=== PATIENT | female | born 1985 | race Caucasian/White ===

== ENCOUNTER → 2018-03-09 08:15 | Outpatient (CLI) | payer OTHER, SELFPAY ==
--- NOTE | 2018-03-09 08:16 | DI.US.S_ITS ---
PROCEDURE: US OB >= 14 WEEKS FETUS INDICATIONS: 20 week aantomic survey OUTSIDE/PRIOR DATING DATA: Last menstrual period (LMP): 10/23/2017. LMP-based estimated date of delivery (MARIBEL): 07/30/2018. First dating scan (date and location): 01/01/2018. Estimated date of delivery (MARIBEL) from first dating scan: 07/27/2018. TECHNIQUE: Real-time scanning was performed of the fetus, with image documentation and biometric measurements. Endovaginal scanning: Not required COMPARISON: [facility], , OB COMPLETE LESS THAN 14 WKS, 01/20/2018, 8:40. FINDINGS: General: A single living intrauterine gestation is present. Presentation: Transverse to breech. Placenta: Placental position is a right frontal, without previa. Amniotic fluid index: 13.7 cm, normal range is 5-24 cm. heart rate: 145 beats per minute. Maternal cervical canal: 5.8 cm long. Normal lower limit is 2.5 cm. biometrics: Biparietal diameter: 21 weeks 3 days Head circumference: 20 weeks 3 days Abdominal circumference: 20 weeks 6 days Femur length: 19 weeks 4 days Estimated gestational age from initial scan: 20.0 weeks Composite gestational age from present scan: 20 weeks 4 days, normal growth Estimated weight and percentile: 347 g at the 65th percentile Measurement variability for biometric dating: +/- 7 days from 14 weeks to 15 weeks 6 days gestation, +/- 10 days from 16 weeks to 21 weeks 6 days gestation, +/- 2 weeks from 22 weeks to 27 weeks 6 days gestation, +/- 3 weeks for 28 weeks gestation or later. weight reference: 4500 g or EFW >90/95% is considered macrosomia or large for gestational age. EFW <10% is small for gestational age. EFW 5% or less is considered intra-uterine growth restriction. Anatomic survey: Neuro: Ventricles are non-dilated at less than 10 mm. Cisterna magna is normal at 3-11 mm. Cerebellum is normal in size and morphology. Nuchal skin fold: Normal at less than 6 mm between 14-21 weeks gestational age. Face: Nose and lips, facial profile are normal. Spine: No evidence for spina bifida. Heart: 4-chambered heart is present, with normal ventricular outflow tracts. Diaphragm: Diaphragm is intact. Stomach: Left-sided stomach is present. Kidneys: No hydronephrosis. Normal is less than 5 mm in 2nd trimester, less than 7 mm in 3rd trimester. Cord: 3-vessel cord has orthotopic insertion. Bladder: Normal in size. Extremities: All 4 extremities identified. IMPRESSION: Single, live intrauterine gestation in breech position showing composite gestational age of 20 weeks 4 days, normal growth and normal anatomy. Dictated by: Abdoulaye Cheema M.D. on 03/09/2018 at 9:33 Approved by: Abdoulaye Cheema M.D. on 03/09/2018 at 9:37
== END ==
PROVIDERS: PCP Internal Medicine; Visit Provider Specialist
DX: Z34.92 Encounter for supervision of normal pregnancy, unspecified, second trimester (principal); Z3A.20 20 weeks gestation of pregnancy
CPT/HCPCS: 76811

== ENCOUNTER → 2018-03-23 10:42 | Outpatient (CLI) | payer OTHER, SELFPAY ==
[2018-03-23 11:23] LABS: Add Manual Diff / Slide Review NO; Basophils Percent Auto 0.3 % (0-2); Eosinophils Percent Auto 1.2 % (2-4); Hematocrit 34.4 % (36-46); Lymphocytes Percent Auto 21.5 % (25-40); Mean Corpuscular HGB Conc 34.9 % (30-36); Mean Corpuscular Hemoglobin 30.2 PG (26-34); Mean Corpuscular Volume 86.7 fL (80-100); Monocytes Percent Auto 6.4 % (3-14); Neutrophils Absolute Auto 5300 /uL (3000-5900); Neutrophils Percent Auto 70.6 % (50-75); Platelet Count 228 X10^3/uL (150-400); Red Blood Cell Count 3.97 X10^6/uL (4.0-5.2); Red Cell Distribution Width 14.2 % (11.6-14.8); White Blood Cell Count 7.6 X10^3/uL (4.5-11.0)
[2018-03-23 15:28] LABS: Hepatitis B Surface Antigen NEGATIVE s/c (NEGATIVE); Rubella Antibody IgG 6.3 IU/mL (>15)
[2018-03-23 15:45] LABS: HIV 1 and 2 Antibody NEGATIVE (NEGATIVE); Hep C Virus Ab w/Reflex Quant NEGATIVE s/c (NEGATIVE)
[2018-03-24 15:21] LABS: HSV 2 IGG AB < 0.90 index (< 0.90)
[2018-03-28 15:19] LABS: Rapid Plasma Reagin NON-REACTIVE
== END ==
PROVIDERS: PCP Internal Medicine; Visit Provider Specialist
DX: Z34.92 Encounter for supervision of normal pregnancy, unspecified, second trimester (principal); Z34.82 Encounter for supervision of other normal pregnancy, second trimester
CPT/HCPCS: 36415; 80055; 86695; 86696; 86703; 86787; 86803; 86850; 86900; 86901; 87086

== ENCOUNTER 2018-05-11 15:02 | Outpatient (CLI) | payer OTHER, SELFPAY ==
--- NOTE | 2018-05-11 15:25 | PM.OBTRLD ---
Visit Information Visit Information Date of evaluation: 05/11/18 Primary OB Provider: Rossy Mccall Reason for Evaluation: Yes other Comments/Additional reasons for admission: Unexplained dizziness Vital Signs Vital Signs: Patient is afebrile, pulse 64, blood pressure 106/62 PFSH Medical History Acne (Chronic) Heavy menstrual bleeding (Chronic) Recurrent cold sores (Chronic) Raynaud disease (Suspected) Family History Grandfather Age: 84 Cancer Diabetes mellitus Heart disease Hypertension Grandmother Age: 80 Hypertension High cholesterol Mother Age: 55 PCOS (polycystic ovarian syndrome) Evaluation Evaluation Baseline heart rate: 130 Variability: Average (6-10) monitor accelerations: Present monitor decelerations: Absent Diagnosis, Plan/Disposition Final Diagnosis (1) Dizziness of unknown cause: Current Visit: Yes Status: Acute (2) 30 weeks gestation of : Current Visit: Yes Status: Acute (3) Encounter for supervision of other normal , third trimester: Current Visit: Yes Status: Acute Plan/Disposition Plan: Patient is dizzy with normal vital signs unclear etiology. Patient is to push fluids rest and keep her follow-up appointment in 2 days.
== END 2018-05-11 15:31 | disposition home or self-care (01) ==
LOC: LABOR 15:37 → OB 05-13 16:43
PROVIDERS: PCP Internal Medicine; Visit Provider Specialist
DX: Z34.83 Encounter for supervision of other normal pregnancy, third trimester (principal); Z3A.29 29 weeks gestation of pregnancy
CPT/HCPCS: 59025; G0378; G0379

== ENCOUNTER → 2018-05-13 10:01 | Outpatient (CLI) | payer OTHER, SELFPAY ==
[2018-05-13 13:19] LABS: Hematocrit 33.8 % (36-46); Hemoglobin 11.6 g/dL (12.0-16.0)
[2018-05-13 14:15] LABS: GTT (PREG) 1 Hour PP 50gm Dose 68 mg/dL (76-139)
== END ==
PROVIDERS: PCP Internal Medicine; Visit Provider Specialist
DX: Z34.82 Encounter for supervision of other normal pregnancy, second trimester (principal)
CPT/HCPCS: 82950; 85014; 85018

== ENCOUNTER → 2018-05-24 08:15 | Outpatient (CLI) | payer OTHER, SELFPAY ==
--- NOTE | 2018-05-24 | DI.US.S_ITS ---
PROCEDURE: US OB LIMITED INDICATIONS: 31 weeks with vaginal bleeding OUTSIDE/PRIOR DATING DATA: Last menstrual period (LMP): 10/23/2017. LMP-based estimated date of delivery (MARIBEL): 07/30/2018. First dating scan (date and location): 01/01/2018. Estimated date of delivery (MARIBEL) from first dating scan: 07/27/2018. TECHNIQUE: Real-time scanning was performed of the fetus, with image documentation. Endovaginal scanning: Not required COMPARISON: [facility], , US OB >= 14 WEEKS FETUS, 04/29/2018, 12:12. FINDINGS: A single living intrauterine gestation is present. Presentation: Vertex. Placenta: Placental position is right superior, without previa. Amniotic fluid index: 13.3 cm, normal range is 5-24 cm. heart rate: 145 beats per minute. Maternal cervical canal: 6.2 cm long. Normal lower limit is 2.5 cm Estimated gestational age from initial scan: 30 weeks 6 days. IMPRESSION: Single, live intrauterine gestation in Vertex lie. No evidence of placental abruption or previa. Cervical length is normal. Volume of amniotic fluid is normal. Dictated by: Abdoulaye Cheema M.D. on 05/24/2018 at 10:27 Approved by: Abdoulaye Cheema M.D. on 05/24/2018 at 10:31
--- NOTE | 2018-05-24 08:49 | PM.OBTRLD ---
Visit Information Visit Information Date of evaluation: 05/24/18 Primary OB Provider: Rossy Mccall Comments/Additional reasons for admission: Thirty-one weeks with vaginal bleeding Vital Signs Vital Signs: Blood pressure 105/68, pulse of 58 PFSH Medical History Acne (Chronic) Heavy menstrual bleeding (Chronic) Recurrent cold sores (Chronic) Raynaud disease (Suspected) Family History Grandfather Age: 84 Cancer Diabetes mellitus Heart disease Hypertension Grandmother Age: 80 Hypertension High cholesterol Mother Age: 55 PCOS (polycystic ovarian syndrome) Review of Systems Review of Systems Patient complains of vaginal irritation. Good movement. Patient had blood when she wiped and a fair amount of blood in the toilet after straining for a bowel movement. She does have hemorrhoids. She was unsure of what was hemorrhoids or vaginal bleeding. Exam Narrative Exam Narrative: Patient's abdomen is soft, nontender. Normal external genitalia vagina and cervix. Brown blood in the vaginal vault. Cervix is long and closed. No ferning. Rare hyphae. Evaluation Evaluation Baseline heart rate: 135 Variability: Moderate (11-25) monitor accelerations: Present monitor decelerations: Absent Contraction Frequency (minutes): 0 Category of Tracing: I Cervical dilation (cm): 0 Diagnosis, Plan/Disposition Final Diagnosis (1) 31 weeks gestation of : Current Visit: Yes Status: Acute (2) Third trimester bleeding, antepartum: Current Visit: Yes Status: Acute Plan/Disposition Plan: Patient with vaginal bleeding but no evidence of contractions or cervical dilation. Ultrasound did not show evidence of abruption. heart tracing is reassuring. Patient is to have pelvic rest. She is to call the bleeding increases or she begins having cramping. Otherwise keep her normal OB appointment.
== END | disposition home or self-care (01) ==
LOC: LABOR 09:19 → OB 05-25 13:02
PROVIDERS: PCP Internal Medicine; Visit Provider Specialist
DX: O46.93 Antepartum hemorrhage, unspecified, third trimester (principal); Z3A.31 31 weeks gestation of pregnancy
CPT/HCPCS: 59000; 59025; 59050; 76815; 76817; 87210; G0378; G0379

== ENCOUNTER → 2018-07-06 12:33 | Outpatient (CLI) | payer OTHER, SELFPAY | PROVIDERS: PCP Internal Medicine; Visit Provider Specialist | DX: Z34.83 Encounter for supervision of other normal pregnancy, third trimester (principal); Z3A.37 37 weeks gestation of pregnancy | CPT/HCPCS: 87081 ==

== ENCOUNTER 2018-07-17 13:54 | Outpatient (CLI) | payer OTHER, SELFPAY ==
--- NOTE | 2018-07-18 08:18 | PM.OBTRLD ---
Visit Information Visit Information Date of evaluation: 07/17/18 Primary OB Provider: Rossy Mccall Reason for Evaluation: Yes non-stress test non-stress test reason: other (Patient fell after being hit by her dog) Vital Signs Vital Signs: Blood pressure 95/57, pulse 66 PFSH Medical History Acne (Chronic) Heavy menstrual bleeding (Chronic) Recurrent cold sores (Chronic) Raynaud disease (Suspected) Family History Grandfather Age: 85 Cancer Diabetes mellitus Heart disease Hypertension Grandmother Age: 81 Hypertension High cholesterol Mother Age: 56 PCOS (polycystic ovarian syndrome) Review of Systems Review of Systems Patient has some mild back pain. No leakage of fluid. No vaginal bleeding. No cramping. Good movement. All systems reviewed & are unremarkable except as noted in HPI and below Exam Vital Signs (past 8 hours): Blood pressure 95/57, pulse 66. Evaluation Evaluation Baseline heart rate: 145 Variability: Moderate (11-25) monitor accelerations: Present monitor decelerations: Absent Contraction Frequency (minutes): 0 Category of Tracing: I Diagnosis, Plan/Disposition Final Diagnosis (1) 38 weeks gestation of : Current Visit: No Status: Acute (2) Trauma during : Current Visit: No Status: Acute Plan/Disposition Plan: Patient with reactive nonstress test the no evidence of problems after fall. Precautions reviewed with patient to return if she has bleeding, abdominal pain, cramping, leakage of fluid. Otherwise keep normal OB appointment.
--- NOTE | 2018-07-18 08:23 | P.TNLD_ITS ---
Visit Information Visit Information Date of evaluation: 07/17/18 Primary OB Provider: Rossy Mccall Reason for Evaluation: Yes non-stress test non-stress test reason: other ( Patient fell after being hit by her dog) Vital Signs Vital Signs: Blood pressure 95/57, pulse 66 PFSH Medical History Acne (Chronic) Heavy menstrual bleeding (Chronic) Recurrent cold sores (Chronic) Raynaud disease (Suspected) Family History Grandfather Age: 85 Cancer Diabetes mellitus Heart disease Hypertension Grandmother Age: 81 Hypertension High cholesterol Mother Age: 56 PCOS (polycystic ovarian syndrome) Review of Systems Review of Systems Patient has some mild back pain. No leakage of fluid. No vaginal bleeding. No cramping. Good movement. All systems reviewed & are unremarkable except as noted in HPI and below Exam Vital Signs (past 8 hours): Blood pressure 95/57, pulse 66. Evaluation Evaluation Baseline heart rate: 145 Variability: Moderate (11-25) monitor accelerations: Present monitor decelerations: Absent Contraction Frequency (minutes): 0 Category of Tracing: I Diagnosis, Plan/Disposition Final Diagnosis (1) 38 weeks gestation of : Current Visit: No Status: Acute (2) Trauma during : Current Visit: No Status: Acute Plan/Disposition Plan: Patient with reactive nonstress test the no evidence of problems after fall. Precautions reviewed with patient to return if she has bleeding, abdominal pain, cramping, leakage of fluid. Otherwise keep normal OB appointment.
== END 2018-07-17 14:58 | disposition home or self-care (01) ==
LOC: LABOR 13:58 → OB 07-19 08:51
PROVIDERS: PCP Internal Medicine; Visit Provider Specialist
DX: Z34.83 Encounter for supervision of other normal pregnancy, third trimester (principal); Z3A.38 38 weeks gestation of pregnancy; O9A.219 Injury, poisoning and certain other consequences of external causes complicating pregnancy, unspecified trimester
CPT/HCPCS: 59025; G0378; G0379

== ENCOUNTER 2018-07-27 15:32 | Outpatient (CLI) | payer OTHER, SELFPAY ==
--- NOTE | 2018-07-27 16:06 | P.TNLD_ITS ---
Visit Information Visit Information Date of evaluation: 07/27/18 Primary OB Provider: Rossy Mccall Reason for Evaluation: Yes non-stress test non-stress test reason: other ( Postdates) PFSH Medical History Acne (Chronic) Heavy menstrual bleeding (Chronic) Recurrent cold sores (Chronic) Raynaud disease (Suspected) Family History Grandfather Age: 85 Cancer Diabetes mellitus Heart disease Hypertension Grandmother Age: 81 Hypertension High cholesterol Mother Age: 56 PCOS (polycystic ovarian syndrome) Evaluation Evaluation Baseline heart rate: 120 Variability: Moderate (11-25) monitor accelerations: Present monitor decelerations: Absent Diagnosis, Plan/Disposition Final Diagnosis (1) Postmaturity , 40-42 weeks gestation: Current Visit: Yes Status: Acute Plan/Disposition Plan: Reactive nonstress test follow-up in 5 days precautions reviewed. OB Disposition: home
== END 2018-07-27 16:10 | disposition home or self-care (01) ==
LOC: OB 07-28 16:54
PROVIDERS: PCP Internal Medicine; Visit Provider Specialist
DX: O48.0 Post-term pregnancy (principal)
CPT/HCPCS: 59025; G0378; G0379

== ENCOUNTER 2018-07-31 06:14 | Inpatient (IN) | payer OTHER, SELFPAY ==
[2018-07-31] MEDS: LACTATED RINGERS 1,000 ML 100 ML IV ×2 (07:25→21:44)
[2018-07-31 07:32] VITALS: BP 104/68
[2018-07-31 07:50] LABS: Add Manual Diff / Slide Review NO; Basophils Percent Auto 0.4 % (0-2); Eosinophils Percent Auto 0.8 % (2-4); Hematocrit 33.7 % (36-46); Hemoglobin 11.6 g/dL (12.0-16.0); Lymphocytes Percent Auto 29.8 % (25-40); Mean Corpuscular HGB Conc 34.4 % (30-36); Mean Corpuscular Hemoglobin 29.7 PG (26-34); Mean Corpuscular Volume 86.3 fL (80-100); Monocytes Percent Auto 7.8 % (3-14); Neutrophils Absolute Auto 4700 /uL (3000-5900); Neutrophils Percent Auto 61.2 % (50-75); Platelet Count 166 X10^3/uL (150-400); Red Cell Distribution Width 16.2 % (11.6-14.8); White Blood Cell Count 7.7 X10^3/uL (4.5-11.0)
--- NOTE | 2018-07-31 08:12 | PM.OBHP.1 ---
OB HPI Date/Time Date of admission: 07/31/18 Date Patient Seen: 07/31/18 Time Patient Seen: 08:13 History of Present Condition Chief complaint: OBSERVATION : 3 Para: 1 Estimated Gestational Age (weeks): 40 Narrative: Sarah De Paz is a 33 year old female three para one with an MARIBEL of 07/26/2018 based on early ultrasound. She is now 40 and four seven th weeks . She presents with spontaneous rupture of membranes. The AmniSure is positive. The patient's antepartum course was uneventful. Her weight gain was 40 lb. Her blood pressures remained normotensive. Her urine she remained negative glucose improved pain. At 37 weeks of the patient was a breech. Subset examination is if found the baby to be vertex. The patient's 1st labor involved in occiput posterior presentation and a 32 hr labor and spontaneous vaginal delivery. The patient's laboratory data is detailed below. Significantly her early 1st and 2nd trimester screens for abnormality were negative. Her 22 week ultrasound was negative showing a baby boy. Her glucose screen was negative at 68. And her group B strep was negative. Indications Other reason(s) for admission: Spontaneous rupture of membranes History of Present care: good care Dating criteria: LMP confirmed by 1st trimester US Ultrasounds: normal 1st trimester US and normal mid trimester US Obstetrical complications: none Medical complications: none Preadmission Labs Blood type: O (+) positive -: Antibody screen: negative, GBS status: negative, HBsAG: negative, HIV: negative, HSV 1: negative, HSV 2: negative and RPR/VDLR: negative -: Chlamydia screen: not detected and Gonorrhea screen: not detected -: Rubella: not immune and Varicella: unknown HCT: 33.8 HCAB: negative PAP: Normal Integrated screen: Negative 1 hr GTT: 68 Prior (ies) History: Patient with a difficult labor and occiput posterior presentation. 32 hr with Pitocin augmentation after epidural anesthesia at 4 cm and subsequent spontaneous vaginal delivery. Evaluation Evaluation Laboratory results: Laboratory Tests 07/31/18 07:15 WBC 7.7 RBC 3.90 L Hgb 11.6 L Hct 33.7 L MCV 86.3 MCH 29.7 MCHC 34.4 RDW 16.2 H Plt Count 166 Neut % (Auto) 61.2 Lymph % (Auto) 29.8 Nolan % (Auto) 7.8 Eos % (Auto) 0.8 L Baso % (Auto) 0.4 Neut # (Auto) 4700 [facility] Medical History Acne (Chronic) Heavy menstrual bleeding (Chronic) Recurrent cold sores (Chronic) Raynaud disease (Suspected) Family History Grandfather Age: 85 Cancer Diabetes mellitus Heart disease Hypertension Grandmother Age: 81 Hypertension High cholesterol Mother Age: 56 PCOS (polycystic ovarian syndrome) Social History Smoking Status: Never smoker Meds Home Medications Medication Instructions Recorded Confirmed Type progesterone micronized 200 mg PO QPM #100 cap 08/19/17 Rx [Prometrium] vit-iron fum-folic ac 1 cap PO QDAY #0 01/01/18 07/31/18 History [Mynatal] Allergies Allergy/AdvReac Type Severity Reaction Status Date / Time No Known Drug Allergies Allergy Verified 07/31/18 07:38 Review of Systems Review of Systems All systems reviewed & are unremarkable except as noted in HPI and below Exam Vital Signs (past 8 hours): - 07/31/18 07:32 Blood Pressure 104/68 Oxygen Delivery Method Room Air Const General: cooperative and healthy appearing [facility] Head: normal to inspection Ears: hearing grossly normal bilaterally Nose: external nose normal Face and sinus: normal facial exam Mouth: oral mucosae normal, lip normal, tongue normal and moist mucous membranes Teeth and gingiva: dentition normal Throat: posterior oropharynx normal Eyes General: appearance normal, both eyes and all related structures Neck Neck: normal visual inspection and full ROM Chest Chest: normal inspection of the chest and normal palpation of entire chest wall Breast inspection: normal inspection of the breasts and normal inspection of the axillae Breast Palpation: normal palpation of the breasts and normal palpation of the axillae Resp Effort & Inspection: normal respiratory effort Auscultation: clear to auscultation bilaterally Cardio Palpation: normal PMI Rate: regular rate Rhythm: regular rhythm Heart Sounds: S1 normal and S2 normal GI Inspection: normal to inspection Palpation: soft and no hepatosplenomegaly Percussion: normal to percussion Auscultation: normal bowel sounds External Female Exam: external appearance normal and normal appearance of the urethra Manual OB Exam: dilated (Cervix closed), effaced (Cervix uneffaced) 0% and station high Uterus Location (Fundal Height): 38 Presentation: vertex Estimated Weight (lbs): 7 Amniotic Fluid: meconium and other Other: An AmniSure positive Back/Spine/Pelvis Thoracic/Lumbar Spine: thoracic and lumbar spine normal to inspection Skin General: no rashes or lesions noted Neuro General: alert, oriented x3, tone normal and moves all extremities Cognition: normal cognition Speech: speech normal Gait: normal gait Motor: muscle tone normal throughout Sensory Exam: no sensory deficits noted Extrem General: normal to inspection and normal exam except as noted Psych Appearance: grossly normal and well kempt Mental Status: mental status grossly normal Speech and Movement: speech and movement normal Objective Labs Result Diagrams: 07/31/18 07:15 Labs: Laboratory Results - last 24 hr 07/31/18 07:15 WBC 7.7 RBC 3.90 L Hgb 11.6 L Hct 33.7 L MCV 86.3 MCH 29.7 MCHC 34.4 RDW 16.2 H Plt Count 166 Neut % (Auto) 61.2 Lymph % (Auto) 29.8 Nolan % (Auto) 7.8 Eos % (Auto) 0.8 L Baso % (Auto) 0.4 Neut # (Auto) 4700 Assessment and Plan (1) Spontaneous rupture of membranes: Onset Date: ~07/31/18 Current visit: Yes Status: Acute Term intrauterine Vertex presentation Premature spontaneous rupture membranes with light meconium Unfavorable cervix Presentation appears to be left occiput anterior Consider Pitocin induction of labor (2) Vertex of head palpable vaginally, antepartum: Current visit: Yes Status: Acute
--- NOTE | 2018-07-31 10:04 | PM.OBPNLAB ---
Date/Time Date Patient Seen: 07/31/18 Time Patient Seen: 10:04 Pain Control Pain control: tolerating well Comments: does not desire induction with pitocin or prostaglandin Pelvic Exam Amniotic membrane status: Ruptured Comments: in view of ruptre membranews no exam done at this time. Pt comfortable and walking with intermittent contractions Contractions Contractions on admission: irregular Monitor mode: External Contraction pattern: Irregular Contraction intensity: Mild Status status: Category l Heart Rate Baseline: 140 Monitor Accelerations: Present Monitor Decelerations: Absent Monitor Variability: Moderate Assessment and Plan Assessment: other Plan: continuous present management Comments: patient prefers to wait before induction. Understands small but real risks of infection
[2018-07-31] MEDS: OXYTOCIN PREMIX 30 UNIT/500 ML PLAST..BAG IV (18:02)
--- NOTE | 2018-07-31 19:59 | PM.PN.1 ---
Subjective Date Patient Seen: 07/31/18 Time Patient Seen: 19:59 Interval history: Patient had now approximately 16 hr post rupture membranes not in active labor. Exam Vital Signs (past 8 hours): Oxygen Delivery Method Room Air Narrative Exam Narrative: heart tones category 1 to category 2 with some prolonged 2-3 minute long decelerations and variable decelerations but otherwise reassuring tracing. Vaginal exam the head is still not engaged in the pelvis cervix is posterior, 1 cm external os, unable to feel parts through the cervix. Continued meconium-stained fluid leakage. Objective Labs Result Diagrams: 07/31/18 07:15 Labs: Laboratory Results - last 24 hr 07/31/18 07/31/18 07:15 07:15 WBC 7.7 RBC 3.90 L Hgb 11.6 L Hct 33.7 L MCV 86.3 MCH 29.7 MCHC 34.4 RDW 16.2 H Plt Count 166 Neut % (Auto) 61.2 Lymph % (Auto) 29.8 [place] % (Auto) 7.8 Eos % (Auto) 0.8 L Baso % (Auto) 0.4 Neut # (Auto) 4700 Blood Type O Positive Antibody Screen Negative Assessment & Plan (1) Spontaneous rupture of membranes: Current visit: Yes Status: Acute (2) Postmaturity , 40-42 weeks gestation: Current visit: Yes Status: Acute Plan: Assessment/Plan Narrative: Premature Rupture membranes not in active labor. Pitocin has been started. Will start IV antibiotics. Time Spent With Patient Time with patient: less than 15 minutes
[2018-07-31] MEDS: CEFAZOLIN 1 GM/50 ML FROZ.PIGGY IV (20:29)
--- NOTE | 2018-08-01 02:22 | PM.PREOP ---
Pre-operative Note Interval Note Pre-op Check: Yes History & Physical Reviewed by Physician and Yes Exam Performed Changes: Yes H&P completed within 30 days and has changed as indicated here:: Fetus is now in transverse lie so decision made to proceed with
[2018-08-01] MEDS: LACTATED RINGERS 1,000 ML 42 ML IV ×2 (03:00→04:30)
[2018-08-01] MEDS: CEFAZOLIN 1 GM/50 ML FROZ.PIGGY IV (03:06)
--- NOTE | 2018-08-01 03:21 | SUR.OPER ---
Supine on Padded OR bed, head on pillow, safety belt at thigh, arms secured on padded arm boards at <90 degrees abduction. Bump under right buttock. Legs uncrossed with pillow under knees, gel pad to heels, tape over blanket to lower legs.
--- NOTE | 2018-08-01 03:35 | SUR.OPER ---
VIABLE MALE INFANT DELIVERED AT 0315. PLACENTA AND CORD BLOOD TO OB WITH RN
[2018-08-01 03:51] VITALS: BP 94/55; PULSE 81; RESP 12; TEMP 36.8; O2SAT 98
[2018-08-01 03:56] VITALS: BP 94/56; PULSE 76; RESP 16; O2SAT 98
--- NOTE | 2018-08-01 03:56 | P.OP_ITS ---
Operative Date/Time/Diagnoses Date of procedure: 08/01/18 Time of procedure: 03:52 Pre-op diagnosis: Transverse lie at term with ruptured membranes Post-op diagnosis: same Procedure & Clinicians Procedure: Primary low-transverse section Same procedure as scheduled: Yes Indications: Patient had came in with rupture of membranes. Initially was vertex but at complete dilation was found to be transverse lie Surgeon: Rossy Mccall Click Yes if Unassisted: Yes Anesthesia Type: Epidural Operative Notes Findings: Normal tubes and ovaries. Small uterine septum. Viable male weighing 8 lb 4 oz. Apgars were 6, 8, 9. With thick meconium fluid Closure Type: primary Specimen(s): none sent Applied: catheter (Castro) Estimated Blood Loss (mL): 450 Procedure in detail: The patient was brought to the operating room where she underwent bolus in her epidural for anesthesia. She was placed in a supine position with a left lateral tilt. A Castro catheter was in place. Pulsatile stockings were placed and functional throughout the case. 1 g of Ancef were given IV prior to the incision. Warming was in place. The patient was prepped and draped in usual sterile fashion. A low transverse incision was made with a scalpel and the incision was carried down to the fascial layer which was incised transversely with scissors. The midline attachments are superiorly and inferiorly. Some bleeding was controlled Bovie. The rectus muscles were in the midline and the peritoneal incision was made with no damage to internal structures. The peritoneum was incised and superiorly and inferiorly. Bladder blade was placed and a bladder flap was developed and the bladder held away from the lower uterine segment. An incision was made in the uterus with the scalpel and the incision was extended with stretching. The feet were grasped and the delivered to the armpits. The baby was rotated and the arms delivered. With fundal pressure the 's head delivered. The infant was bulb suctioned for thick meconium fluid and handed off to the warmer. Cord blood was collected. The placenta delivered spontaneously with traction. The uterus was cleaned with clean laps. The uterine incision was closed in 2 layers of 0 chromic suture the first a running locking layer the second an imbricating layer. The bladder peritoneum was repaired with 2-0 Polysorb suture. The gutters were cleaned of any remaining fluids and ovaries and tubes were observed to be normal. Adequate hemostasis was noted. The perineum was closed with 2-0 Polysorb suture. The fascia layer was closed with 0 Polysorb suture with 2 stitches. The incision was irrigated and adequate hemostasis noted. The incision was closed with interrupted 3-0 Polysorb sutures and then a subcuticular stitch of 4 -0 Polysorb suture. Steri-Strips were placed. The uterus was massaged to remove any clots. The patient went to recovery room in good condition. Counts of instruments and sponges were correct. Complications: none Condition: stable Disposition: other (Labor and delivery) Plan for aftercare: Routine post section
[2018-08-01 04:00] VITALS: BP 90/58; PULSE 82; RESP 14; O2SAT 100
[2018-08-01 04:06] VITALS: BP 96/56; PULSE 73; RESP 13; TEMP 36.8; O2SAT 100
[2018-08-01 04:11] VITALS: BP 93/54; PULSE 75; RESP 10; TEMP 36.7; O2SAT 100
--- NOTE | 2018-08-01 04:33 | SUR.PHASEI ---
stable pacu stay, fundus remained firm at u and small lochia no clots. bp low dr nunez aware pt asymptomatic.
[2018-08-01] MEDS: LACTATED RINGERS 1,000 ML 100 ML IV (09:53)
[2018-08-01] MEDS: KETOROLAC 30 MG/ML VIAL IV ×3 (09:53→22:55)
[2018-08-01] MEDS: DOCUSATE 250 MG CAPSULE PO (09:53)
[2018-08-01] MEDS: OXYCODONE/ACETAMINOPHEN 5/325 TABLET 2 TAB PO (21:33)
[2018-08-02] MEDS: IBUPROFEN 600 MG TABLET PO ×3 (05:39→17:56)
[2018-08-02 07:57] LABS: Add Manual Diff / Slide Review NO; Basophils Percent Auto 0.2 % (0-2); Hematocrit 24.6 % (36-46); Hemoglobin 8.2 g/dL (12.0-16.0); Lymphocytes Percent Auto 14.5 % (25-40); Mean Corpuscular HGB Conc 33.5 % (30-36); Mean Corpuscular Hemoglobin 29.5 PG (26-34); Mean Corpuscular Volume 88.3 fL (80-100); Monocytes Percent Auto 7.4 % (3-14); Neutrophils Absolute Auto 9300 /uL (3000-5900); Neutrophils Percent Auto 77.9 % (50-75); Platelet Count 149 X10^3/uL (150-400); Red Blood Cell Count 2.79 X10^6/uL (4.0-5.2); Red Cell Distribution Width 16.8 % (11.6-14.8)
--- NOTE | 2018-08-02 15:39 | PM.OBDS.1 ---
Discharge Providers Date of admission: 07/31/18 06:59 Primary care physician: LIVE Banegas Consults: 07/31/18 06:59 Consult to Anesthesiology Urgent Comment: Consulting Provider: Anesthesiologist Reason for consultation: Epidural Has provider been notified: No 08/01/18 05:28 Consult to Occupational Health And Safety Adviser Routine Comment: Discharge provider: Rossy Mccall MD Discharge Date: 08/02/18 Summary Date Patient Seen: 08/02/18 Time Patient Seen: 15:40 Hospital Course: Patient arrived on Labor and delivery with spontaneous rupture membranes. She did not start into active labor so was started on Pitocin. Due to prolonged rupture membranes she was started prophylactic on IV antibiotics. Patient progressed to complete dilation however the infant turned to transverse back down so patient was taken for a section. Patient did well . She denies any signs or symptoms of preeclampsia. Her pain is under control. She is ambulatory. She is passing gas. Blood pressure 103/64, pulse of 95, temperature 98.9?. Abdomen is soft, nontender. Uterus is firm, at U, appropriately tender. Incision is clean, dry, intact. Mild lochia. Extremities with trace edema and nontender. Peripartum Data Infant Delivery Method: Emergency Section Procedures: Epidural catheter, primary low-transverse section complications: none Discharge Diagnosis (1) Spontaneous rupture of membranes: Status: Acute (2) Postmaturity , 40-42 weeks gestation: Status: Acute (3) Delivery by section for breech presentation: Status: Acute Time Spent with Patient Total time spent providing and/or coordinating discharge services: Objective Labs Result Diagrams: 08/02/18 06:58 Labs: Laboratory Results - last 24 hr 08/02/18 06:58 WBC 12.0 H D RBC 2.79 L Hgb 8.2 L Hct 24.6 L MCV 88.3 MCH 29.5 MCHC 33.5 RDW 16.8 H Plt Count 149 L Neut % (Auto) 77.9 H Lymph % (Auto) 14.5 L [place] % (Auto) 7.4 Eos % (Auto) 0.0 L Baso % (Auto) 0.2 Neut # (Auto) 9300 H Discharge Plan Discharge Plan Patient Disposition: Home Discharge Med Rec/Prescriptions Prescriptions: New oxycodone-acetaminophen 5-325 mg Tablet 2 tab PO Q4HR PRN (Reason: Pain, Severe (7-10)) Qty: 30 RF: 0 ibuprofen 600 mg Tablet 600 mg PO Q6HR PRN (Reason: As Needed For Fever/Mild Pain) Qty: 30 RF: 0 docusate sodium 250 mg Capsule 250 mg PO DAILY Qty: 20 RF: 0 breast pump device .ROUTE .MEDSUPPLY Qty: 1 RF: 0 Continue vit-iron fum-folic ac [Mynatal] 1 EACH capsule 1 cap PO QDAY Qty: 0 RF: 0 Discontinued progesterone micronized [Prometrium] 200 MG capsule 200 mg PO QPM Qty: 100 RF: 1 Follow up/Referrals: [facility] [Provider Group] Rossy Mccall MD [Physician] - 1 Week (Incision check) Keerthi Mock ARNP [Primary Care Provider] - Provider Discharge Instructions Diet: Regular Activity: Nothing in vagina for 6 weeks. Do not lift over 20 lb for 6 weeks except for child Skin/Wound/Dressing Care Report to your healthcare provider any signs of infection, such as:: chills, fever, night sweats and unusual drainage Dressing: Can get incision wet just pat Steri-Strips dry Discharge Data Primary Care Provider: Keerthi Mock Attending Provider: Boris Wilson Admit Date/Time: 07/31/18 06:59
[2018-08-02 15:43] VITALS: BP 103/64; PULSE 95; RESP 18; TEMP 37.2
== END 2018-08-02 18:40 | disposition home or self-care (01) | DRG 788 ==
PROVIDERS: Specialist; PCP Internal Medicine
PROC: 10D00Z1 Extraction of Products of Conception, Low, Open Approach (ICD-10-PCS; CPT 59514; principal; 2018-08-01 02:20)
DX: O42.02 Full-term premature rupture of membranes, onset of labor within 24 hours of rupture (principal); Z3A.40 40 weeks gestation of pregnancy; Z37.0 Single live birth; O48.0 Post-term pregnancy; O77.0 Labor and delivery complicated by meconium in amniotic fluid; O64.0XX0 Obstructed labor due to incomplete rotation of fetal head, not applicable or unspecified
CPT/HCPCS: 01967; 01968; 36415; 59050; 59510; 76815; 84112; 85025; 86850; 86900; 86901; G0378; G0379; J1100; J1885; J2405; J2590

== ENCOUNTER → 2019-05-10 16:03 | Outpatient (CLI) | payer OTHER, SELFPAY ==
--- NOTE | 2019-05-10 16:05 | DI.RAD.S_ITS ---
PROCEDURE: XR HIP W PEL IF DONE RT 2V INDICATIONS: R hip and leg pain TECHNIQUE: AP pelvis with lateral view(s) of the right hip(s). COMPARISON: None. FINDINGS: Bones: No fractures or dislocations. Pelvic ring appears intact. No suspicious bony lesions. The joint spaces appear grossly preserved Soft tissues: The visualized bowel gas pattern is normal. No suspicious soft tissue calcifications. IMPRESSION: Unremarkable examination as above. If the patient's pain or other symptoms persist, consider further evaluation with MRI Dictated by: Lavelle Berry M.D. on 05/10/2019 at 17:19 Approved by: Lavelle Berry M.D. on 05/10/2019 at 17:20
== END ==
PROVIDERS: PCP Family Medicine; Visit Provider Family Medicine
DX: M25.551 Pain in right hip (principal); M79.604 Pain in right leg
CPT/HCPCS: 73502

== ENCOUNTER → 2022-10-12 10:33 | Outpatient (CLI) | payer OTHER, SELFPAY ==
[2022-10-12 12:18] LABS: Vitamin D 25 Hydroxy (D3) 28.3 ng/mL (30.0-100.0)
[2022-10-12 12:19] LABS: Free T3, Triiodothyronine Free 3.62 pg/mL (2.77-5.27); Free T4, Direct Thyroxine 0.92 ng/dL (0.78-2.19)
[2022-10-12 12:31] LABS: Vitamin B12 494 pg/mL (239-931)
[2022-10-12 12:32] LABS: Thyroid Stimulating Hormone 1.33 uIU/mL (0.47-4.68)
[2022-10-13 08:44] LABS: Thyroid Peroxidase Antibodies 22 IU/mL (0-34)
[2022-10-14 13:36] LABS: Anti Thyroglobulin Antibody <1.0 IU/mL (0.0-0.9)
[2022-11-03 14:54] LABS: Triiodothyronine T3 Reverse 14.7
== END ==
PROVIDERS: PCP Family Medicine; Referring Provider Family Medicine; Visit Provider Family Medicine
DX: M54.9 Dorsalgia, unspecified (principal); N64.4 Mastodynia; R42 Dizziness and giddiness; R51.9 Headache, unspecified; U07.1 COVID-19
CPT/HCPCS: 82306; 82607; 84439; 84443; 84481; 84482; 86376; 86769; 86800

== ENCOUNTER → 2024-01-05 10:31 | Outpatient (CLI) | payer OTHER, SELFPAY ==
[2024-01-05 11:11] LABS: Add Manual Diff / Slide Review NO; Basophils Absolute Auto 0 /uL (0-100); Basophils Percent Auto 0.6 % (0-2); Eosinophils Absolute Auto 100 /uL (0-450); Eosinophils Percent Auto 1.8 % (2-4); Hematocrit 37.6 % (36-46); Hemoglobin 12.8 g/dL (12.0-16.0); Lymphocytes Absolute Auto 1500 /uL (1100-4500); Lymphocytes Percent Auto 29.1 % (25-40); Mean Corpuscular HGB Conc 34.1 % (30-36); Mean Corpuscular Hemoglobin 29.2 PG (26-34); Mean Corpuscular Volume 85.7 fL (80-100); Monocytes Absolute Auto 400 /uL (0-900); Monocytes Percent Auto 7.1 % (3-14); Neutrophils Absolute Auto 3100 /uL (1500-7000); Neutrophils Percent Auto 61.4 % (50-75); Platelet Count 267 X10^3/uL (150-400); Red Blood Cell Count 4.38 X10^6/uL (4.0-5.2); Red Cell Distribution Width 12.9 % (11.6-14.8); White Blood Cell Count 5.1 X10^3/uL (4.5-11.0)
[2024-01-05 12:13] LABS: Vitamin D 25 Hydroxy (D3) 33.5 ng/mL (30.0-100.0)
[2024-01-05 14:53] LABS: HEMOLYSIS < 15 (0-50)
[2024-01-05 15:34] LABS: Ferritin 43 ng/mL (6-137)
[2024-01-05 15:48] LABS: Vitamin B12 887 pg/mL (239-931)
[2024-01-05 16:11] LABS: Follicle Stimulating Hormone 4.44 mIU/mL
[2024-01-05 16:18] LABS: Alanine Aminotransferase 20 IU/L (<35); Albumin 4.2 g/dL (3.5-5.0); Albumin Globulin Ratio 1.1 (1.0-2.8); Alkaline Phosphatase 63 U/L (38-126); Aspartate Aminotransferase 24 IU/L (14-36); Bilirubin Total 0.4 mg/dL (0.2-1.3); Calcium 9.2 mg/dL (8.4-10.2); Carbon Dioxide 27 mmol/L (22-32); Chloride 107 mmol/L (98-107); Estimated Glomerular Filt Rate > 60 mL/min (>60); Globulin 3.8 g/dL (1.7-4.1); Glucose 59 mg/dL (70-100); Potassium 3.8 mmol/L (3.4-5.1); Sodium 140 mmol/L (137-145)
[2024-01-05 16:24] LABS: BUN Creatinine Ratio 17.4 (6-22); Blood Urea Nitrogen 12 mg/dL (7-17)
[2024-01-05 17:47] LABS: HEMOLYSIS < 15 (0-50); TSH w/ Reflex to FT4 1.39 uIU/mL (0.47-4.68)
[2024-01-06 20:00] LABS: Iron 88 ug/dL (37-170)
[2024-01-06 20:22] LABS: Percent Iron Saturation 30 % (15-50); Total Iron Binding Capacity 297 ug/dL (265-497); Transferrin 247 mg/dL (206-381)
[2024-01-11 20:47] LABS: Estrogen 129 pg/mL (.)
[2024-01-13 06:33] LABS: % Free Progesterone 3.3 % (.); Free Progesterone <0.33 ng/dL (.); Progesterone, Serum <10 ng/dL (.)
== END ==
LOC: LAB 10:32
PROVIDERS: PCP Family Medicine; Referring Provider Physician Assistant; Visit Provider Physician Assistant
DX: N92.6 Irregular menstruation, unspecified (principal); R42 Dizziness and giddiness; R53.83 Other fatigue; L65.9 Nonscarring hair loss, unspecified; E55.9 Vitamin D deficiency, unspecified; E53.8 Deficiency of other specified B group vitamins
CPT/HCPCS: 36415; 80053; 82306; 82607; 82672; 82728; 83001; 83540; 83550; 84144; 84443; 84999; 85025

== ENCOUNTER → 2024-10-12 12:09 | Outpatient (CLI) | payer OTHER, SELFPAY ==
--- NOTE | 2024-10-12 12:10 | DI.US.S_ITS ---
PROCEDURE: US OB <= 14 WEEKS FETUS INDICATIONS: irregular sharp left side pain in early OUTSIDE/PRIOR DATING DATA: Last menstrual period (LMP): 09/03/2024. LMP-based estimated date of delivery (MARIBEL): 06/10/2020. TECHNIQUE: Real-time scanning was performed of the fetus and maternal pelvic organs, with image documentation. Endovaginal scanning was also performed to better visualize the fetus and maternal ovaries. COMPARISON: None. FINDINGS: Embryo: Possible gestational sac measuring 3 mm which would be consistent with 5 weeks and 0 days. No pole is seen. No yolk sac is seen. Possible subchorionic bleed measuring 3 x 7 x 14 mm. Heart rate: No pole is identified. Maternal organs: Ovaries are within normal limits. Small cystic focus at the scar. IMPRESSION: 1. Possible gestational sac measuring 3 mm which would be consistent with 5 weeks and 0 days. No pole or yolk sac is identified. Recommend follow-up ultrasound in 2 weeks to assess viability. 2. Possible subchorionic bleed measuring up to 14 mm. We strive to produce accurate, complete, and clear reports of imaging services. To assist us in improving patient care, this report was composed using standard report templates and voice recognition software. Therefore, it may contain abnormal punctuation, insertions and/or omissions. Occasional wrong-word or sound-alike substitutions may occur. Though we review the report and make efforts to correct it, we do recommend that the report be read carefully in proper context to recognize any text inaccuracies. Dictated by: Joel Pearson M.D. on 10/12/2024 at 14:46 Approved by: Joel Pearson M.D. on 10/12/2024 at 14:49
== END ==
LOC: US 12:10
PROVIDERS: PCP Family Medicine; Referring Provider Obstetrics & Gynecology; Visit Provider Obstetrics & Gynecology
DX: O26.891 Other specified pregnancy related conditions, first trimester (principal); R10.2 Pelvic and perineal pain
CPT/HCPCS: 76801; 76817

== ENCOUNTER → 2024-10-13 14:31 | Outpatient (CLI) | payer OTHER, SELFPAY ==
[2024-10-13 16:47] LABS: HCG Quantitative /Beta subunit 1007.7 mIU/mL
== END ==
LOC: LAB 14:32
PROVIDERS: PCP Family Medicine; Referring Provider Obstetrics & Gynecology; Visit Provider Obstetrics & Gynecology
DX: O26.899 Other specified pregnancy related conditions, unspecified trimester (principal); R10.9 Unspecified abdominal pain
CPT/HCPCS: 36415; 84702

== ENCOUNTER → 2024-10-16 12:22 | Outpatient (CLI) | payer OTHER, SELFPAY ==
[2024-10-16 13:23] LABS: HCG Quantitative /Beta subunit 815.92 mIU/mL
== END ==
LOC: LAB 12:23
PROVIDERS: PCP Family Medicine; Referring Provider Obstetrics & Gynecology; Visit Provider Obstetrics & Gynecology
DX: O26.899 Other specified pregnancy related conditions, unspecified trimester (principal); R10.2 Pelvic and perineal pain
CPT/HCPCS: 36415; 84702

== ENCOUNTER → 2025-03-13 08:57 | Outpatient (CLI) | payer OTHER, SELFPAY ==
--- NOTE | 2025-03-13 09:00 | DI.US.S_ITS ---
PROCEDURE: US PELVIC COMPLETE INDICATIONS: Pelvic pain; postcoital bleeding TECHNIQUE: Real-time scanning was performed of the pelvic organs, with image documentation. Additional endovaginal scanning was necessary due to incomplete visualization of the adnexal and endometrial structures by transabdominal scanning. COMPARISON: None. FINDINGS: Uterus: 8.3 x 6.8 x 5.2 cm. Anteverted positioning. Endometrium measures 12 mm, upper limit of normal for age. Suspect arcuate configuration. Nonspecific microcystic changes of the endometrium. Possible anterior lower uterine segment scar versus focal cystic change. Ovaries: Nonenlarged right ovary measuring 6 cc. Left ovary is mildly prominent at 12 cc. Other: No pathologic free fluid. IMPRESSION: Nonspecific microcystic changes of the endometrium. Endometrium measures 12 mm thickness, which is the upper limit of normal for age. No discrete lesion identified. Suspect arcuate endometrial configuration, normal variant. Possible scar, correlate with history. Dictated by: Zac Joaquin M.D. on 03/13/2025 at 12:36 Approved by: Zac Joaquin M.D. on 03/13/2025 at 12:40
--- NOTE | 2025-03-13 09:53 | DI.MG.S_ITS ---
US breast RT limited, MM diagnostic mammo BI: 03/13/2025 BI-RADS: 1 CLINICAL: 40-year old female for bilateral diagnostic mammogram and right diagnostic breast ultrasound. Tyrer-Cuzick lifetime risk of 10.6%. No personal or first- degree family history of breast cancer. The patient reports a palpable abnormality (1 month) in the right breast. PRIOR EXAMS 10/09/2022. MAMMOGRAPHY TECHNIQUE: 2D and 3D (tomosynthesis) digital mammographic views obtained, with additional images as needed for full coverage. Current study was also evaluated with a Computer Aided Detection (CAD) system. ULTRASOUND TECHNIQUE Real-time duarte scale imaging of the area of clinical interest was performed with image documentation. TARGETED Right Breast Ultrasound: Real-time ultrasound exam was performed focused to area of clinical and/or imaging concern. DENSITY C. The breasts are heterogeneously dense, which may obscure small masses. TISSUE COMPOSITION Right: Inner at 1:00, Retroareolar: (a) Homogeneous fatty. Right: Central at 7:00, Retroareolar: (a) Homogeneous fatty. MAMMOGRAPHY FINDINGS Right: Inner at 2:30, Retroareolar, Far Anterior depth: A marker overlies the breast at the site of palpable abnormality; there is no underlying mammographic correlate. Left: No suspicious mass, asymmetry, microcalcification, or other abnormality seen. ULTRASOUND FINDINGS Right: Inner at 1:00, Retroareolar: There is no sonographic correlate for the palpable abnormality. No suspicious sonographic finding present. Right: Central at 7:00, Retroareolar: There is no sonographic correlate for the symptom of focal pain. No suspicious sonographic finding present. IMPRESSION: Right * No imaging correlate to explain right breast palpable abnormality or pain. Bilateral * No evidence of malignancy. RECOMMENDATIONS Right * Clinical follow up for pain management is recommended. Bilateral * Annual screening mammography beginning at age 40. COMMENTS: Findings and recommendations were conveyed to the patient during today's evaluation. OVERALL ASSESSMENT CATEGORY BI-RADS-1: Negative. The [employer] recommends annual screening mammography beginning at age 40 for women with average risk of breast cancer. ELECTRONICALLY SIGNED: Ira Lowery M.D. on 03/13/2025 at 11:54:14 AM PT Interpreting Station ID: [id number]
== END ==
PROVIDERS: PCP Family Medicine; Referring Provider Family Medicine; Visit Provider Physician Assistant
DX: N64.4 Mastodynia (principal); R92.333 Mammographic heterogeneous density, bilateral breasts; M79.629 Pain in unspecified upper arm; N93.0 Postcoital and contact bleeding; R10.2 Pelvic and perineal pain
CPT/HCPCS: 76642; 76830; 76856; 77066; G0279

== ENCOUNTER → 2025-07-02 15:15 | Outpatient (CLI) | payer OTHER, SELFPAY ==
--- NOTE | 2025-07-02 15:17 | DI.RAD.S_ITS ---
PROCEDURE: FL BARIUM SWALLOW INDICATIONS: GERD; persistent sore throat COMPARISON: None. FINDINGS: Function: There is normal esophageal peristalsis. No elicited gastroesophageal reflux. There is normal transit of a calibrated barium tablet through the esophagus into the stomach. Morphology: Air-contrast images demonstrate normal mucosal morphology. Single contrast views show no esophageal strictures, extrinsic mass effects, or diverticula. Limited images of the stomach demonstrate normal appearance. IMPRESSION: 1. No gastroesophageal reflux elicited. No hiatal hernia. 2. No esophageal dysmotility. Dictated by: David Marin M.D. on 07/02/2025 at 17:27 Approved by: David Marin M.D. on 07/02/2025 at 17:28
== END ==
PROVIDERS: Family Provider Family Medicine; PCP Family Medicine; Visit Provider Radiology Diagnostic Radiology
DX: J02.9 Acute pharyngitis, unspecified (principal); K21.9 Gastro-esophageal reflux disease without esophagitis
CPT/HCPCS: 74220

== ENCOUNTER → 2025-08-08 15:53 | Outpatient (CLI) | payer OTHER, SELFPAY ==
--- NOTE | 2025-08-08 15:54 | DI.CT.S_ITS ---
PROCEDURE: CT SOFT TISSUE NECK W CON INDICATIONS: right neck pain swelling and dysphagia TECHNIQUE: After the administration of intravenous contrast, 3.0 mm axial sections acquired from the sella to the aortic arch. Additional oblique axial 3.0 mm sections acquired through the pharynx. 3 mm thick coronal and sagittal reformats were generated. For radiation dose reduction, the following was used: automated exposure control. COMPARISON: None. FINDINGS: Image quality: There is artifact associated with the metallic hardware. Artifact from the metallic hardware is reduced by metal reconstruction algorithm. There is streak artifact seen through the level of the shoulders. Lymph nodes: No enlarged lymph nodes seen throughout the neck. Vessels: Visualized vasculature appears patent. Neck spaces: The oropharynx, nasopharynx, and pharynx demonstrate no mucosal lesions. The vocal cords, false vocal cords, pyriform sinuses, epiglottis, vallecula, and tongue base all appear normal. Extramucosal spaces appear unremarkable. Glands: The parotid and submandibular glands appear normal. Thyroid gland demonstrates no significant abnormality. Miscellaneous: Visualized brain and orbits appear normal. Lung apices appear clear. Superficial soft tissues appear normal. Bones: No suspicious bony lesions. Visualized sinuses and mastoids appear unremarkable. Focal degenerative change can be seen at C4-C5. Milder degenerative changes are seen elsewhere. IMPRESSION: No imaging explanation is found for this patient's presenting symptoms. No masses are detected. No enlarged lymph nodes. Additional findings: Focal C4-C5 degenerative change Dictated by: Keny Reyes M.D. on 08/08/2025 at 16:31 Approved by: Keny Reyes M.D. on 08/08/2025 at 16:32
== END ==
LOC: CT 15:54
PROVIDERS: Family Provider Family Medicine; PCP Family Medicine; Referring Provider Family Medicine; Visit Provider Family Medicine
DX: M47.812 Spondylosis without myelopathy or radiculopathy, cervical region (principal); K21.9 Gastro-esophageal reflux disease without esophagitis; M54.2 Cervicalgia; R13.13 Dysphagia, pharyngeal phase
CPT/HCPCS: 70491; Q9967